=== PATIENT | female | born 1955 | race Caucasian/White ===

== ENCOUNTER 2023-02-21 10:47 | Outpatient (CLI) | payer MEDICARE, BC | END 2023-02-21 10:48 | disposition home or self-care (01) | LOC: CSHMAMMO 10:47 | PROVIDERS: ATTEND Obstetrics & Gynecology | DX: Z12.31 Encounter for screening mammogram for malignant neoplasm of breast (principal); Z98.82 Breast implant status | CPT/HCPCS: 77063; 77067 ==

== ENCOUNTER 2024-04-23 15:06 | Outpatient (CLI) | payer MEDICARE | END 2024-04-23 15:07 | disposition home or self-care (01) | LOC: CSHMAMMO 15:06 | PROVIDERS: ATTEND Obstetrics & Gynecology | DX: Z78.0 Asymptomatic menopausal state (principal); M85.89 Other specified disorders of bone density and structure, multiple sites | CPT/HCPCS: 77080 ==

== ENCOUNTER 2025-03-13 09:34 | Outpatient (CLI) | payer MEDICARE | END 2025-03-13 09:35 | disposition home or self-care (01) | LOC: CSHMAMMO 09:34 | PROVIDERS: ATTEND Obstetrics & Gynecology | DX: Z12.31 Encounter for screening mammogram for malignant neoplasm of breast (principal); Z98.82 Breast implant status; Z91.89 Other specified personal risk factors, not elsewhere classified | CPT/HCPCS: 77063; 77067 ==